=== PATIENT | female | born 1990 | race Native Hawaiian/Other Pacific Islander ===

== ENCOUNTER 2017-05-06 13:08 | Emergency (ER) | payer OTHER ==
[~2017-05-06] VITALS: Ht 167.6 cm; Wt 68.0 kg
[2017-05-06 13:50] LABS: PLATELET COUNT 213 K/uL (152-353)
== END 2017-05-06 14:20 | disposition home or self-care (01) ==
LOC: ED 13:08
DX: S02.5XXA Fracture of tooth (traumatic), initial encounter for closed fracture (principal); M26.601 Right temporomandibular joint disorder, unspecified
CPT/HCPCS: 36415; 85027; 99282

== ENCOUNTER 2020-07-09 00:34 | Emergency (ER) | payer OTHER ==
[~2020-07-09] VITALS: Ht 167.6 cm; Wt 90.7 kg
[2020-07-09 01:50] LABS: PLATELET COUNT 189 K/uL (152-353)
[2020-07-09 05:30] VITALS: BP 142/76; TEMP 98.2
== END 2020-07-09 05:37 | disposition home or self-care (01) ==
LOC: ED 00:34
PROVIDERS: Emergency Medicine
DX: K52.89 Other specified noninfective gastroenteritis and colitis (principal)
CPT/HCPCS: 36415; 80053; 81000; 81025; 82150; 83690; 85027; 96374; 99284; J1885; Q9963

== ENCOUNTER 2020-08-03 15:43 | Emergency (ER) | payer OTHER ==
[~2020-08-03] VITALS: Ht 167.6 cm; Wt 84.4 kg
[2020-08-03 17:08] LABS: PLATELET COUNT 206 K/uL (152-353)
[2020-08-03 17:14] LABS: POTASSIUM 3.7 mmol/L (3.6-5.2)
[2020-08-03 20:40] VITALS: BP 126/75; TEMP 97.8
== END 2020-08-03 20:41 | disposition home or self-care (01) ==
LOC: ED 15:43
PROVIDERS: Emergency Medicine Emergency Medical Services
DX: N13.2 Hydronephrosis with renal and ureteral calculous obstruction (principal)
CPT/HCPCS: 36415; 80053; 81000; 81025; 85027; 96360; 96365; 96375; 99284; J1170; J1885; J2270; J2405

== ENCOUNTER 2021-07-25 20:35 | Emergency (ER) | payer OTHER ==
[~2021-07-25] VITALS: Ht 167.6 cm; Wt 89.4 kg
[2021-07-25 21:40] LABS: PLATELET COUNT 225 K/uL (152-353)
[2021-07-25 21:51] LABS: POTASSIUM 3.5 mmol/L (3.6-5.2); SODIUM 137 mmol/L (136-145)
[2021-07-25 22:18] LABS: PARTIAL THROMBOPLASTIN TIME 24.3 SECONDS (24.5-33.6)
[2021-07-25 22:25] VITALS: BP 118/78; TEMP 98.1
== END 2021-07-25 22:25 | disposition home or self-care (01) ==
LOC: ED 20:35
PROVIDERS: Hospitalist
DX: R07.89 Other chest pain (principal); K21.9 Gastro-esophageal reflux disease without esophagitis; Z72.0 Tobacco use
CPT/HCPCS: 36415; 80053; 82550; 83880; 84484; 85027; 85610; 85730; 93005; 99283